=== PATIENT | male | born 1935 | race Caucasian/White ===

== ENCOUNTER 2017-06-05 17:09 | Inpatient (IN) | payer MEDICARE, OTHER ==
--- NOTE | 2017-06-05 17:30 | ED Physician Chart ---
ED Chief Complaint/HPI - Patient Information Date Seen:: 06/05/17 Time Seen:: 17:23 Chief Complaint:: Dementia History of Present Illness:: 82 yo male was brought by his to ER for clearance to [facility] admission. Per , the patient became increasingly obsessive and confusing. Patient would refuse to change clothes or take shower for days. He would occasionally refused to sleep and would take long time to bath or sit on the toilet. He at times became verbally aggressive. ED Review of Systems - Review of Systems General/Constitutional: No fever Skin: Skin lesions Head: No headache Eyes: No loss of vision ENT: No nasal drainage Neck: No neck pain Cardio Vascular: No chest pain Pulmonary: No SOB GI: No nausea, No vomiting Musculoskeletal: No bone or joint pain ED Past Medical History - Past Medical History Past Medical History: HTN Social History: Non Smoker, No Alcohol, No Drug Use Surgical History: other (testectomy) Family Medical History - Family Member Mother Living Status: ED Physical Exam - Physical Examination General/Constitutional: Awake Head: Atraumatic Eyes: PERRL Skin: No ecchymosis ENMT: Nasal exam nl Neck: No nuchal rigidity Respiratory: Clear to Auscultation Cardio Vascular: RRR, No murmur, gallop, rubs, NL S1 S2 GI: No tenderness/rebounding/guarding Extremities: normal strength in all extremities Neuro/Psych: No focal deficits ED Labs/Radiology/EKG Results - Radiology Results Results: CXR: scoliosis, no consolidation ED Assessment - Assessment General Assessment: Dementia with psychosis Assessment/Comments:: CBC, CMP, UA CXR, EKG Clear for [facility] admit ED Septic Shock - . Is Septic Shock (SBP<90, OR Lactate>4 mmol\L) present?: No ED Reassessment (Disposition) - Reassessment Reassessment Condition:: Unchanged - Patient Disposition Discharge/Transfer:: [facility] w/in this hosp
[2017-06-05 18:04] LABS: % BASOPHILS 0.9 % (0.0-2.0); % EOSINOPHILS 6.2 % (0.0-5.0); % LYMPHOCYTES 21.4 % (20.0-50.0); % MONOCYTES 8.2 % (2.0-10.0); % NEUTROPHILS 63.3 % (40.0-80.0); BASOPHILE ABSOLUTE 0.1 Th/cumm (0-0.2); EOSINOPHILE ABSOLUTE 0.5 Th/cmm (0.1-0.4); HEMATOCRIT 40.2 % (41.0-60); HEMOGLOBIN 13.4 gm/dL (12-16); LYMPHOCYTE ABSOLUTE 1.6 Th/cmm (1.5-3.0); MEAN CELL VOLUME 87.4 fl (80-99); MEAN CORPUSCULAR HEMOGLOBIN 29.2 pg (27.0-31.0); MEAN CORPUSCULAR HGB CONC 33.4 pg (28.0-36.0); MEAN PLATELET VOLUME 8.7 fl; MONOCYTE ABSOLUTE 0.6 Th/cmm (0.3-1.0); NEUTROPHILE ABSOLUTE 4.5 Th/cmm (1.8-8.0); PLATELET COUNT 215 Th/cmm (150-400); RED CELL DISTRIBUTION WIDTH 13.8 % (11.5-20.0); WHITE BLOOD COUNT 7.3 Th/cmm (4.8-10.8)
[2017-06-05 18:22] LABS: ALB/GLOB RATIO 1.7 (1.0-1.8); ALBUMIN 4.2 gm/dL (4.2-5.5); ALKALINE PHOSPHATASE 67 U/L (34-104); ANION GAP 9.8 (7.0-16.0); BILIRUBIN,TOTAL 0.3 mg/dL (0.3-1.0); BUN - UREA NITROGEN 11 mg/dL (7-25); CALCIUM SERUM 9.3 mg/dL (8.6-10.3); CARBON DIOXIDE 27.1 mEq/L (21.0-31.0); CHLORIDE 103 mEq/L (98-107); CREATININE - SERUM 0.8 mg/dL (0.7-1.3); GLUCOSE 101 mg/dL (70-105); POTASSIUM SERUM 3.9 mEq/L (3.5-5.1); SGOT 10 U/L (13-39); SGPT/ALT 7 U/L (7-52); SODIUM SERUM 136 mEq/L (136-145); TOTAL PROTEIN,SERUM 6.7 gm/dL (6.0-8.3)
[2017-06-05 22:11] VITALS: BP 138/74
--- NOTE | 2017-06-06 08:29 | Diagnostic Imaging Report ---
Exam: Portable chest x-ray HISTORY: Shortness of breath. Findings: Portable examination of the chest at 1817 hours reviewed, no prior studies available for comparison. The study demonstrates deformity right chest wall without multiple healed fractures. Mediastinal structures midline the heart is prominent. There is evidence of for elevation right left hemidiaphragm with most likely distended bowel or stomach. There is evidence of for air collection under right hemidiaphragm which might represent distended bowel loops. Clinical correlation recommended. CT examination of the abdomen might be helpful. Aortic arch calcified. There is evidence for left basilar atelectasis and pleural thickening. Small left pleural effusion cannot be excluded. COPD changes are noted. Bony thorax demonstrate no evidence for lytic or blastic lesions. IMPRESSION: Elevation left hemidiaphragm with distended stomach or bowel loops. Left basilar atelectasis pleural thickening. Lucency under right hemidiaphragm might represent collection of air throughout the bowel clinical correlation recommended.
--- NOTE | 2017-06-06 18:09 | History & Physical ---
ADMIT DATE: 06/06/2017 CHIEF COMPLAINT: Confusion. HISTORY OF PRESENT ILLNESS: An 82-year-old male with past medical history significant for dementia, brought in by for increased confusion and agitation. The patient has been admitted for further psychiatric evaluation at the [facility]. The patient is sitting in chair. He appears calm, but is a poor historian and does not contribute much for to his history. Denies any complaints. PAST MEDICAL HISTORY: The patient has history of dementia and hypertension. MEDICATIONS: The patient takes Namenda, metoprolol, Trileptal, Seroquel and vitamin B12. ALLERGIES: No known drug allergies. SOCIAL HISTORY: No known tobacco, alcohol or illicit drug use. FAMILY HISTORY: Noncontributory. REVIEW OF SYSTEMS: IMMUNOLOGIC: No recurrent infection. CARDIOVASCULAR: The patient has no known heart disease. He has hypertension. GASTROINTESTINAL: Denies nausea, vomiting or diarrhea. ENDOCRINE: No diabetes or thyroid disorder. NEUROLOGIC: No seizure or stroke. HEMATOLOGIC: No bleeding or clotting disorder. PHYSICAL EXAMINATION: GENERAL: The patient is awake and alert, in no acute distress. The patient appears cachectic and chronically malnourished. VITAL SIGNS: Temperature 98.4, pulse 74, respiration 18, blood pressure 137/72. SKIN: The patient has what appears to be abrasions on his nose and forehead, appears several days old with evidence of scabbing and healing. HEENT: Pupils are equal and round. Anicteric sclerae. NECK: Supple. No JVD, mass or bruit. LUNGS: Clear to auscultation. CARDIOVASCULAR: S1, S2 regular rate and rhythm. ABDOMEN: Soft, nontender, positive bowel sounds. EXTREMITIES: No clubbing, cyanosis or edema. BACK: No joint deformity. NEUROLOGIC: Moves all extremities equally. No lateralizing signs. LABORATORY DATA: CBC and chemistry are unremarkable. Albumin is 4.2. IMPRESSION: 1. Dementia. 2. Psychiatric disorder. 3. Hypertension. PLAN: Continue current medication. The patient is medically cleared to participate in activity. He is to follow up with primary care physician upon discharge. JOB# [id number]
--- NOTE | 2017-06-07 13:50 | General Progress Note ---
Subjective - Review of Systems Service Date: 06/07/17 Subjective: resting comfortably no distress Objective - Results Result Diagrams: 06/05/17 17:58 06/05/17 17:58 Recent Labs: Laboratory Last Values WBC 7.3 Th/cmm (4.8-10.8) 06/05/17 17:58 RBC 4.60 Mil/cmm (3.80-5.80) 06/05/17 17:58 Hgb 13.4 gm/dL (12-16) 06/05/17 17:58 Hct 40.2 % (41.0-60) L 06/05/17 17:58 MCV 87.4 fl (80-99) 06/05/17 17:58 MCH 29.2 pg (27.0-31.0) 06/05/17 17:58 MCHC Differential 33.4 pg (28.0-36.0) 06/05/17 17:58 RDW 13.8 % (11.5-20.0) 06/05/17 17:58 Plt Count 215 Th/cmm (150-400) 06/05/17 17:58 MPV 8.7 fl 06/05/17 17:58 Neutrophils % 63.3 % (40.0-80.0) 06/05/17 17:58 Lymphocytes % 21.4 % (20.0-50.0) 06/05/17 17:58 Monocytes % 8.2 % (2.0-10.0) 06/05/17 17:58 Eosinophils % 6.2 % (0.0-5.0) H 06/05/17 17:58 Basophils % 0.9 % (0.0-2.0) 06/05/17 17:58 Sodium 136 mEq/L (136-145) 06/05/17 17:58 Potassium 3.9 mEq/L (3.5-5.1) 06/05/17 17:58 Chloride 103 mEq/L (98-107) 06/05/17 17:58 Carbon Dioxide 27.1 mEq/L (21.0-31.0) 06/05/17 17:58 Anion Gap 9.8 (7.0-16.0) 06/05/17 17:58 BUN 11 mg/dL (7-25) 06/05/17 17:58 Creatinine 0.8 mg/dL (0.7-1.3) 06/05/17 17:58 Est GFR ( Amer) TNP 06/05/17 17:58 Est GFR (Non-Af Amer) TNP 06/05/17 17:58 BUN/Creatinine Ratio 13.8 06/05/17 17:58 Glucose 101 mg/dL (70-105) 06/05/17 17:58 Calcium 9.3 mg/dL (8.6-10.3) 06/05/17 17:58 Total Bilirubin 0.3 mg/dL (0.3-1.0) 06/05/17 17:58 AST 10 U/L (13-39) L 06/05/17 17:58 ALT 7 U/L (7-52) 06/05/17 17:58 Alkaline Phosphatase 67 U/L (34-104) 06/05/17 17:58 Total Protein 6.7 gm/dL (6.0-8.3) 06/05/17 17:58 Albumin 4.2 gm/dL (4.2-5.5) 06/05/17 17:58 Globulin 2.5 gm/dL 06/05/17 17:58 Albumin/Globulin Ratio 1.7 (1.0-1.8) 06/05/17 17:58 TSH 1.80 uIU/ml (0.34-5.60) 06/05/17 17:58 - Physical Exam Vitals and I&O: Vital Signs Temp 98.7 F 06/06/17 21:07 Pulse 69 06/07/17 08:58 Resp 18 06/06/17 21:07 BP 121/62 06/07/17 08:58 Pulse Ox 100 06/06/17 21:07 Intake & Output 06/06/17 06/07/17 06/07/17 18:59 06:59 18:59 Intake Total 900 120 Balance 900 120 Intake: Oral 900 120 Other: # Voids 4 1 # Bowel Movements 1 Active Medications: Current Medications Acetaminophen (Tylenol) 650 mg PO Q4HR PRN PRN Reason: Mild Pain / Temp above 100 Stop: 08/04/17 21:28 Cyanocobalamin (Vitamin B12) 1,000 mcg PO DAILY [facility] Stop: 08/05/17 08:59 Last Admin: 06/07/17 08:59 Dose: 1,000 mcg Lorazepam (Ativan) 0.5 mg PO Q4HR PRN; Protocol PRN Reason: Anxiety Stop: 07/05/17 21:28 Memantine (Namenda) 10 mg PO BID [facility] Stop: 08/05/17 08:59 Last Admin: 06/07/17 08:58 Dose: 10 mg Metoprolol Succinate (Toprol Xl) 50 mg PO DAILY [facility] Stop: 08/05/17 08:59 Last Admin: 06/07/17 08:58 Dose: 50 mg Oxcarbazepine (Trileptal) 300 mg PO QAM [facility] PRN Reason: Protocol Stop: 08/05/17 08:59 Last Admin: 06/07/17 08:57 Dose: 300 mg Quetiapine Fumarate (Seroquel) 100 mg PO HS [facility] PRN Reason: Protocol Stop: 08/05/17 20:59 Last Admin: 06/06/17 21:55 Dose: 100 mg Quetiapine Fumarate (Seroquel) 50 mg PO BID [facility] PRN Reason: Protocol Stop: 08/05/17 08:59 Last Admin: 06/07/17 08:57 Dose: 50 mg Zolpidem Tartrate (Ambien) 5 mg PO HS PRN PRN Reason: Insomnia Stop: 08/04/17 21:28 Last Admin: 06/06/17 21:55 Dose: 5 mg General: No acute distress HEENT: Atraumatic, PERRLA Neck: Supple, JVD Cardiovascular: Regular rate, Normal S1, Normal S2 Lungs: Clear to auscultation Abdomen: Bowel sounds, Soft Assessment/Plan - Assessment Assessment: dementia HTN - Plan Plan: cont current treatment
--- NOTE | 2017-06-07 17:22 | Psychosocial Evaluation ---
DATE OF SERVICE: 06/05/2017 PSYCHIATRIC INITIAL EVALUATION AND MENTAL STATUS EXAM AGE: 82. SEX: Male. PHYSICIAN: Dr. Dejesus. CHIEF COMPLAINT: Agitation and aggressive behavior. HISTORY OF PRESENT ILLNESS: The patient is admitted to the hospital from home after the patient has been increasingly agitated and has been actively hallucinating. The patient also has been refusing to take medications and his behavior has been out of control. According to the admission report, the patient has history of bipolar disorder and has been taking Seroquel 100 mg every day and also has been taking Trileptal. The patient has been easily agitated and has been in irritable moods. Also, has been restless. Also, the patient has been suspicious and paranoid with severe mood swings. He is also uncooperative with treatment and the patient has been at times refusing to sleep and also has been taking long time sitting in the shower and ____. The patient currently is agitated and refused to answer most of the questions. PAST PSYCHIATRIC HISTORY: The patient has history of bipolar disorder as well as history of dementia. PAST MEDICAL HISTORY: The patient has a history of hypertension. SOCIAL HISTORY: The patient lives at home. No known alcohol or drug use. ALLERGIES: No known allergies. MENTAL STATUS EXAMINATION: The patient appears his stated age. Anxious. Flat affect. In irritable mood. Thought processes are with poverty of speech. The patient did not answer questions about hallucinations or delusions and the patient seems to be preoccupied and paranoid. The patient did not answer questions in regards to suicide or homicide and he gets agitated and irritable with my questions. Poor insight and poor judgment. ASSESSMENT: PRIMARY DIAGNOSIS: Bipolar disorder, severe, with psychotic features. SECONDARY DIAGNOSIS: Dementia, severe, with psychotic features. TREATMENT PLAN: We will increase Seroquel to 50 mg twice a day and 100 mg at bedtime and we will continue Trileptal. Also, we will continue monitoring his behavior and his medications closely. ESTIMATED LENGTH OF STAY: 5-7 days. THE PATIENT'S STRENGTHS AND WEAKNESSES: The patient is cooperative with his treatment and taking his medications at this time. Weakness is his poor impulse control and his behavior. AFTER DISCHARGE PLAN: ____ and outpatient treatment and followup will continue as an outpatient. CRITERIA FOR DISCHARGE: Better impulse control and stabilizing psychotropic medications. [facility]# [id number]
--- NOTE | 2017-06-08 23:56 | Internal Medicine Prog Note ---
Internal Medicine Subjective - Subjective Service Date: 06/08/17 Patient seen and examined:: without staff Patient is:: awake, in bed, confused Per staff patient has:: no adverse event Internal Medicine Objective - Results Result Diagrams: 06/05/17 17:58 06/05/17 17:58 Recent Labs: Laboratory Last Values WBC 7.3 Th/cmm (4.8-10.8) 06/05/17 17:58 RBC 4.60 Mil/cmm (3.80-5.80) 06/05/17 17:58 Hgb 13.4 gm/dL (12-16) 06/05/17 17:58 Hct 40.2 % (41.0-60) L 06/05/17 17:58 MCV 87.4 fl (80-99) 06/05/17 17:58 MCH 29.2 pg (27.0-31.0) 06/05/17 17:58 MCHC Differential 33.4 pg (28.0-36.0) 06/05/17 17:58 RDW 13.8 % (11.5-20.0) 06/05/17 17:58 Plt Count 215 Th/cmm (150-400) 06/05/17 17:58 MPV 8.7 fl 06/05/17 17:58 Neutrophils % 63.3 % (40.0-80.0) 06/05/17 17:58 Lymphocytes % 21.4 % (20.0-50.0) 06/05/17 17:58 Monocytes % 8.2 % (2.0-10.0) 06/05/17 17:58 Eosinophils % 6.2 % (0.0-5.0) H 06/05/17 17:58 Basophils % 0.9 % (0.0-2.0) 06/05/17 17:58 Sodium 136 mEq/L (136-145) 06/05/17 17:58 Potassium 3.9 mEq/L (3.5-5.1) 06/05/17 17:58 Chloride 103 mEq/L (98-107) 06/05/17 17:58 Carbon Dioxide 27.1 mEq/L (21.0-31.0) 06/05/17 17:58 Anion Gap 9.8 (7.0-16.0) 06/05/17 17:58 BUN 11 mg/dL (7-25) 06/05/17 17:58 Creatinine 0.8 mg/dL (0.7-1.3) 06/05/17 17:58 Est GFR ( Amer) TNP 06/05/17 17:58 Est GFR (Non-Af Amer) TNP 06/05/17 17:58 BUN/Creatinine Ratio 13.8 06/05/17 17:58 Glucose 101 mg/dL (70-105) 06/05/17 17:58 Calcium 9.3 mg/dL (8.6-10.3) 06/05/17 17:58 Total Bilirubin 0.3 mg/dL (0.3-1.0) 06/05/17 17:58 AST 10 U/L (13-39) L 06/05/17 17:58 ALT 7 U/L (7-52) 06/05/17 17:58 Alkaline Phosphatase 67 U/L (34-104) 06/05/17 17:58 Total Protein 6.7 gm/dL (6.0-8.3) 06/05/17 17:58 Albumin 4.2 gm/dL (4.2-5.5) 06/05/17 17:58 Globulin 2.5 gm/dL 06/05/17 17:58 Albumin/Globulin Ratio 1.7 (1.0-1.8) 06/05/17 17:58 TSH 1.80 uIU/ml (0.34-5.60) 06/05/17 17:58 - Physical Exam Vitals and I&O: Vital Signs Temp 98 F 06/08/17 19:46 Pulse 90 06/08/17 19:46 Resp 20 06/08/17 20:00 BP 153/70 06/08/17 19:46 Pulse Ox 96 06/08/17 19:46 Intake & Output 06/08/17 06/08/17 06/09/17 06:59 18:59 06:59 Intake Total 240 900 240 Balance 240 900 240 Intake: Oral 240 900 240 Other: # Voids 1 3 1 Stool Characteristics Soft Soft Brown Brown Active Medications: Current Medications Acetaminophen (Tylenol) 650 mg PO Q4HR PRN PRN Reason: Mild Pain / Temp above 100 Stop: 08/04/17 21:28 Cyanocobalamin (Vitamin B12) 1,000 mcg PO DAILY [facility] Stop: 08/05/17 08:59 Last Admin: 06/08/17 09:58 Dose: Not Given Lorazepam (Ativan) 0.5 mg PO Q4HR PRN; Protocol PRN Reason: Anxiety Stop: 07/05/17 21:28 Memantine (Namenda) 10 mg PO BID [facility] Stop: 08/05/17 08:59 Last Admin: 06/08/17 17:44 Dose: 10 mg Metoprolol Succinate (Toprol Xl) 50 mg PO DAILY [facility] Stop: 08/05/17 08:59 Last Admin: 06/08/17 09:58 Dose: Not Given Oxcarbazepine (Trileptal) 300 mg PO QAM [facility] PRN Reason: Protocol Stop: 08/05/17 08:59 Last Admin: 06/08/17 09:58 Dose: Not Given Quetiapine Fumarate (Seroquel) 100 mg PO HS [facility] PRN Reason: Protocol Stop: 08/05/17 20:59 Last Admin: 06/08/17 20:33 Dose: 100 mg Quetiapine Fumarate (Seroquel) 50 mg PO BID [facility] PRN Reason: Protocol Stop: 08/05/17 08:59 Last Admin: 06/08/17 17:44 Dose: 50 mg Zolpidem Tartrate (Ambien) 5 mg PO HS PRN PRN Reason: Insomnia Stop: 08/04/17 21:28 Last Admin: 06/07/17 21:02 Dose: 5 mg General: demented HEENT: NC/AT, PERRLA, EOMI, anicteric sclerae, throat clear Lungs: CTAB Cardiovascular: RRR, Normal S1, Normal S2, without murmur Abdomen: soft, non-tender, non-distended Extremities: clear Neurological: no change Internal Medicine Assmt/Plan - Assessment Assessment: 1.HTN. 2.DJD. 3.DEMENTIA. 4.PSYCHOSIS. - Plan Plan: CONTINUE ON CURRENT MEDICATION NAD DIET.
--- NOTE | 2017-06-09 20:03 | Internal Medicine Prog Note ---
Internal Medicine Subjective - Subjective Service Date: 06/09/17 Patient seen and examined:: without staff (HE FEELS BETTER) Patient is:: awake, in bed, confused Per staff patient has:: no adverse event Internal Medicine Objective - Results Result Diagrams: 06/05/17 17:58 06/05/17 17:58 Recent Labs: Laboratory Last Values WBC 7.3 Th/cmm (4.8-10.8) 06/05/17 17:58 RBC 4.60 Mil/cmm (3.80-5.80) 06/05/17 17:58 Hgb 13.4 gm/dL (12-16) 06/05/17 17:58 Hct 40.2 % (41.0-60) L 06/05/17 17:58 MCV 87.4 fl (80-99) 06/05/17 17:58 MCH 29.2 pg (27.0-31.0) 06/05/17 17:58 MCHC Differential 33.4 pg (28.0-36.0) 06/05/17 17:58 RDW 13.8 % (11.5-20.0) 06/05/17 17:58 Plt Count 215 Th/cmm (150-400) 06/05/17 17:58 MPV 8.7 fl 06/05/17 17:58 Neutrophils % 63.3 % (40.0-80.0) 06/05/17 17:58 Lymphocytes % 21.4 % (20.0-50.0) 06/05/17 17:58 Monocytes % 8.2 % (2.0-10.0) 06/05/17 17:58 Eosinophils % 6.2 % (0.0-5.0) H 06/05/17 17:58 Basophils % 0.9 % (0.0-2.0) 06/05/17 17:58 Sodium 136 mEq/L (136-145) 06/05/17 17:58 Potassium 3.9 mEq/L (3.5-5.1) 06/05/17 17:58 Chloride 103 mEq/L (98-107) 06/05/17 17:58 Carbon Dioxide 27.1 mEq/L (21.0-31.0) 06/05/17 17:58 Anion Gap 9.8 (7.0-16.0) 06/05/17 17:58 BUN 11 mg/dL (7-25) 06/05/17 17:58 Creatinine 0.8 mg/dL (0.7-1.3) 06/05/17 17:58 Est GFR ( Amer) TNP 06/05/17 17:58 Est GFR (Non-Af Amer) TNP 06/05/17 17:58 BUN/Creatinine Ratio 13.8 06/05/17 17:58 Glucose 101 mg/dL (70-105) 06/05/17 17:58 Calcium 9.3 mg/dL (8.6-10.3) 06/05/17 17:58 Total Bilirubin 0.3 mg/dL (0.3-1.0) 06/05/17 17:58 AST 10 U/L (13-39) L 06/05/17 17:58 ALT 7 U/L (7-52) 06/05/17 17:58 Alkaline Phosphatase 67 U/L (34-104) 06/05/17 17:58 Total Protein 6.7 gm/dL (6.0-8.3) 06/05/17 17:58 Albumin 4.2 gm/dL (4.2-5.5) 06/05/17 17:58 Globulin 2.5 gm/dL 06/05/17 17:58 Albumin/Globulin Ratio 1.7 (1.0-1.8) 06/05/17 17:58 TSH 1.80 uIU/ml (0.34-5.60) 06/05/17 17:58 - Physical Exam Vitals and I&O: Vital Signs Temp 98.2 F 06/09/17 15:52 Pulse 101 06/09/17 15:52 Resp 18 06/09/17 15:52 BP 120/64 06/09/17 15:52 Pulse Ox 95 06/09/17 15:52 Intake & Output 06/09/17 06/09/17 06/10/17 06:59 18:59 06:59 Intake Total 240 Balance 240 Intake: Oral 240 Other: # Voids 3 # Bowel Movements 1 Stool Characteristics Soft Soft Soft Brown Brown Brown Active Medications: Current Medications Acetaminophen (Tylenol) 650 mg PO Q4HR PRN PRN Reason: Mild Pain / Temp above 100 Stop: 08/04/17 21:28 Cyanocobalamin (Vitamin B12) 1,000 mcg PO DAILY [facility] Stop: 08/05/17 08:59 Last Admin: 06/09/17 09:38 Dose: 1,000 mcg Lorazepam (Ativan) 0.5 mg PO Q4HR PRN; Protocol PRN Reason: Anxiety Stop: 07/05/17 21:28 Memantine (Namenda) 10 mg PO BID [facility] Stop: 08/05/17 08:59 Last Admin: 06/09/17 16:42 Dose: 10 mg Metoprolol Succinate (Toprol Xl) 50 mg PO DAILY [facility] Stop: 08/05/17 08:59 Last Admin: 06/09/17 09:38 Dose: Not Given Oxcarbazepine (Trileptal) 300 mg PO QAM [facility] PRN Reason: Protocol Stop: 08/05/17 08:59 Last Admin: 06/09/17 09:39 Dose: 300 mg Quetiapine Fumarate (Seroquel) 100 mg PO HS [facility] PRN Reason: Protocol Stop: 08/05/17 20:59 Last Admin: 06/08/17 20:33 Dose: 100 mg Quetiapine Fumarate (Seroquel) 50 mg PO BID [facility] PRN Reason: Protocol Stop: 08/05/17 08:59 Last Admin: 06/09/17 16:42 Dose: 50 mg Zolpidem Tartrate (Ambien) 5 mg PO HS PRN PRN Reason: Insomnia Stop: 08/04/17 21:28 Last Admin: 06/07/17 21:02 Dose: 5 mg General: demented HEENT: NC/AT, PERRLA, EOMI, anicteric sclerae, throat clear Lungs: CTAB Cardiovascular: RRR, Normal S1, Normal S2, without murmur Abdomen: soft, non-tender, non-distended Extremities: clear Neurological: no change Internal Medicine Assmt/Plan - Assessment Assessment: 1.HTN. 2.DJD. 3.DEMENTIA. 4.PSYCHOSIS. - Plan Plan: CONTINUE ON CURRENT MEDICATION NAD DIET.
--- NOTE | 2017-06-10 06:59 | Progress Notes ---
DATE: 06/07/2017 SUBJECTIVE: Chart reviewed and the patient interviewed. Also discussed the patient's condition with the staff and reviewed records and labs. The patient is calm and he seems to be quite today. Also, has been more cooperative with his care. He still seems to be depressed and is withdrawn. He is also easier to the direct him. He is compliant with taking his medications and no side effect of medications. ASSESSMENT: The patient is showing some improvement. TREATMENT PLAN: We will continue monitoring his behavior and continue adjusting psychotropic medications. Also, continue to work on behavior modification and follow up closely. JOB# [id number]
--- NOTE | 2017-06-10 20:53 | Internal Medicine Prog Note ---
Internal Medicine Subjective - Subjective Patient is:: awake, in bed, confused Per staff patient has:: no adverse event Internal Medicine Objective - Results Result Diagrams: 06/05/17 17:58 06/05/17 17:58 Recent Labs: Laboratory Last Values WBC 7.3 Th/cmm (4.8-10.8) 06/05/17 17:58 RBC 4.60 Mil/cmm (3.80-5.80) 06/05/17 17:58 Hgb 13.4 gm/dL (12-16) 06/05/17 17:58 Hct 40.2 % (41.0-60) L 06/05/17 17:58 MCV 87.4 fl (80-99) 06/05/17 17:58 MCH 29.2 pg (27.0-31.0) 06/05/17 17:58 MCHC Differential 33.4 pg (28.0-36.0) 06/05/17 17:58 RDW 13.8 % (11.5-20.0) 06/05/17 17:58 Plt Count 215 Th/cmm (150-400) 06/05/17 17:58 MPV 8.7 fl 06/05/17 17:58 Neutrophils % 63.3 % (40.0-80.0) 06/05/17 17:58 Lymphocytes % 21.4 % (20.0-50.0) 06/05/17 17:58 Monocytes % 8.2 % (2.0-10.0) 06/05/17 17:58 Eosinophils % 6.2 % (0.0-5.0) H 06/05/17 17:58 Basophils % 0.9 % (0.0-2.0) 06/05/17 17:58 Sodium 136 mEq/L (136-145) 06/05/17 17:58 Potassium 3.9 mEq/L (3.5-5.1) 06/05/17 17:58 Chloride 103 mEq/L (98-107) 06/05/17 17:58 Carbon Dioxide 27.1 mEq/L (21.0-31.0) 06/05/17 17:58 Anion Gap 9.8 (7.0-16.0) 06/05/17 17:58 BUN 11 mg/dL (7-25) 06/05/17 17:58 Creatinine 0.8 mg/dL (0.7-1.3) 06/05/17 17:58 Est GFR ( Amer) TNP 06/05/17 17:58 Est GFR (Non-Af Amer) TNP 06/05/17 17:58 BUN/Creatinine Ratio 13.8 06/05/17 17:58 Glucose 101 mg/dL (70-105) 06/05/17 17:58 Calcium 9.3 mg/dL (8.6-10.3) 06/05/17 17:58 Total Bilirubin 0.3 mg/dL (0.3-1.0) 06/05/17 17:58 AST 10 U/L (13-39) L 06/05/17 17:58 ALT 7 U/L (7-52) 06/05/17 17:58 Alkaline Phosphatase 67 U/L (34-104) 06/05/17 17:58 Total Protein 6.7 gm/dL (6.0-8.3) 06/05/17 17:58 Albumin 4.2 gm/dL (4.2-5.5) 06/05/17 17:58 Globulin 2.5 gm/dL 06/05/17 17:58 Albumin/Globulin Ratio 1.7 (1.0-1.8) 06/05/17 17:58 TSH 1.80 uIU/ml (0.34-5.60) 06/05/17 17:58 - Physical Exam Vitals and I&O: Vital Signs Temp 97.0 F 06/10/17 14:43 Pulse 87 06/10/17 14:43 Resp 20 06/10/17 19:56 BP 124/72 06/10/17 14:43 Pulse Ox 95 06/10/17 14:43 Intake & Output 06/10/17 06/10/17 06/11/17 06:59 18:59 06:59 Intake Total 900 Balance 900 Intake: Oral 900 Other: # Voids 3 # Bowel Movements 1 Stool Characteristics Soft Brown Active Medications: Current Medications Acetaminophen (Tylenol) 650 mg PO Q4HR PRN PRN Reason: Mild Pain / Temp above 100 Stop: 08/04/17 21:28 Cyanocobalamin (Vitamin B12) 1,000 mcg PO DAILY LLUVIA Stop: 08/05/17 08:59 Last Admin: 06/10/17 08:36 Dose: 1,000 mcg Lorazepam (Ativan) 0.5 mg PO Q4HR PRN; Protocol PRN Reason: Anxiety Stop: 07/05/17 21:28 Memantine (Namenda) 10 mg PO BID [facility] Stop: 08/05/17 08:59 Last Admin: 06/10/17 16:05 Dose: 10 mg Metoprolol Succinate (Toprol Xl) 50 mg PO DAILY LLUVIA Stop: 08/05/17 08:59 Last Admin: 06/10/17 08:36 Dose: 50 mg Oxcarbazepine (Trileptal) 300 mg PO QAM LLUVIA PRN Reason: Protocol Stop: 08/05/17 08:59 Last Admin: 06/10/17 08:37 Dose: 300 mg Quetiapine Fumarate (Seroquel) 100 mg PO HS LLUVIA PRN Reason: Protocol Stop: 08/05/17 20:59 Last Admin: 06/09/17 20:49 Dose: 100 mg Quetiapine Fumarate (Seroquel) 50 mg PO BID LLUVIA PRN Reason: Protocol Stop: 08/05/17 08:59 Last Admin: 06/10/17 16:06 Dose: 50 mg Zolpidem Tartrate (Ambien) 5 mg PO HS PRN PRN Reason: Insomnia Stop: 08/04/17 21:28 Last Admin: 06/07/17 21:02 Dose: 5 mg General: demented HEENT: NC/AT, PERRLA, EOMI, anicteric sclerae, throat clear Lungs: CTAB Cardiovascular: RRR, Normal S1, Normal S2, without murmur Abdomen: soft, non-tender, non-distended Extremities: clear Neurological: no change Internal Medicine Assmt/Plan - Assessment Assessment: 1.HTN. 2.DJD. 3.DEMENTIA. 4.PSYCHOSIS. - Plan Plan: CONTINUE ON CURRENT MEDICATION NAD DIET. Nutritional Asmnt/Malnutr-PDOC - Dietary Evaluation Malnutrition Findings (Please click <Entered> for more info): Nutritional Asmnt/Malnutrition Start: 06/10/17 17: 20 Text: Status: Complete Freq: Document 06/10/17 17:20 KASEY (Rec: 06/10/17 17:36 KASEY [email or web address]) Nutritional Asmnt/Malnutrition Patient General Information Nutritional Screening Moderate Risk Diagnosis bipolar Pertinent Medical Hx/Surgical Hx dementia, HTN Subjective Information pt seen sitting in jasen-chair in dining room. Per nurse, pt consumed 95% of lunch today, needs assistance with feeding but eats well. Per records, PO intake 50-100%. Current Diet Order/ Nutrition Support pureed Pertinent Medications vit B12, seroquel Pertinent Labs 2/2 nutrition related labs WNL Nutritional Hx/Data Height 1.75 m Height (Calculated Centimeters) 175.3 Current Weight (lbs) 74.843 kg Weight (Calculated Kilograms) 74.8 Weight (Calculated Grams) 96477.7 [place] Body Weight 160 % [place] Body Weight 103 Body Mass Index (BMI) 24.3 Weight Status Approriate GI Symptoms GI Symptoms None Last BM 2/6 Difficult in: None Skin Integrity/Comment: lyn velez 18 Estimated Nutritional Goals BEE in Kcals: Using Current wt Calories/Kcals/Kg 25-30 Kcals Calculated 1956-0989 Protein: Using Current wt Protein g/k Protein Calculated 75 Fluid: ml 1875-2250ml (1ml/kcal) Nutritional Problem No current Nutrition Prob Problem N/A Malnutrition Alert Protein-Calorie Malnutrition N/A Is there a minimum of two criteria No selected? Query Text:Check all the applicable criteria. A minimum of two criteria are recommended for diagnosis of either severe or non-severe malnutrition. Intervention/Recommendation Comments 1. Continue with current diet as ordered. 2. Monitor PO intake, wt, labs and skin integrity 3. F/U as low risk in 7 days, 06/17 Expected Outcomes/Goals Expected Outcomes/Goals 1. PO intake to meet at least 75% of nutritional needs. 2. Wt stability, skin to remain intact, labs to approach WNL.
--- NOTE | 2017-06-10 23:42 | Progress Notes ---
DATE: 06/08/2017 SUBJECTIVE: Chart reviewed and the patient interviewed. Also discussed the patient's condition with the staff and reviewed records and labs. The patient is still confused. The patient also is very forgetful and he is unable to remember except he is oriented to his name. The patient also is still anxious and withdrawn and wants to be left alone. Otherwise, the patient is compliant with taking his medications. The patient denies any side effects of medications. ASSESSMENT: The patient is still psychotic and needs close monitoring. TREATMENT PLAN: We will continue to monitor his behavior and his condition closely. Also, continue to work on adjusting psychotropic medications and followup. JOB# [id number]
--- NOTE | 2017-06-11 18:01 | Internal Medicine Prog Note ---
Internal Medicine Subjective - Subjective Service Date: 06/11/17 Patient seen and examined:: with staff Patient is:: awake, in bed, confused Per staff patient has:: no adverse event Internal Medicine Objective - Results Result Diagrams: 06/05/17 17:58 06/05/17 17:58 Recent Labs: Laboratory Last Values WBC 7.3 Th/cmm (4.8-10.8) 06/05/17 17:58 RBC 4.60 Mil/cmm (3.80-5.80) 06/05/17 17:58 Hgb 13.4 gm/dL (12-16) 06/05/17 17:58 Hct 40.2 % (41.0-60) L 06/05/17 17:58 MCV 87.4 fl (80-99) 06/05/17 17:58 MCH 29.2 pg (27.0-31.0) 06/05/17 17:58 MCHC Differential 33.4 pg (28.0-36.0) 06/05/17 17:58 RDW 13.8 % (11.5-20.0) 06/05/17 17:58 Plt Count 215 Th/cmm (150-400) 06/05/17 17:58 MPV 8.7 fl 06/05/17 17:58 Neutrophils % 63.3 % (40.0-80.0) 06/05/17 17:58 Lymphocytes % 21.4 % (20.0-50.0) 06/05/17 17:58 Monocytes % 8.2 % (2.0-10.0) 06/05/17 17:58 Eosinophils % 6.2 % (0.0-5.0) H 06/05/17 17:58 Basophils % 0.9 % (0.0-2.0) 06/05/17 17:58 Sodium 136 mEq/L (136-145) 06/05/17 17:58 Potassium 3.9 mEq/L (3.5-5.1) 06/05/17 17:58 Chloride 103 mEq/L (98-107) 06/05/17 17:58 Carbon Dioxide 27.1 mEq/L (21.0-31.0) 06/05/17 17:58 Anion Gap 9.8 (7.0-16.0) 06/05/17 17:58 BUN 11 mg/dL (7-25) 06/05/17 17:58 Creatinine 0.8 mg/dL (0.7-1.3) 06/05/17 17:58 Est GFR ( Amer) TNP 06/05/17 17:58 Est GFR (Non-Af Amer) TNP 06/05/17 17:58 BUN/Creatinine Ratio 13.8 06/05/17 17:58 Glucose 101 mg/dL (70-105) 06/05/17 17:58 Calcium 9.3 mg/dL (8.6-10.3) 06/05/17 17:58 Total Bilirubin 0.3 mg/dL (0.3-1.0) 06/05/17 17:58 AST 10 U/L (13-39) L 06/05/17 17:58 ALT 7 U/L (7-52) 06/05/17 17:58 Alkaline Phosphatase 67 U/L (34-104) 06/05/17 17:58 Total Protein 6.7 gm/dL (6.0-8.3) 06/05/17 17:58 Albumin 4.2 gm/dL (4.2-5.5) 06/05/17 17:58 Globulin 2.5 gm/dL 06/05/17 17:58 Albumin/Globulin Ratio 1.7 (1.0-1.8) 06/05/17 17:58 TSH 1.80 uIU/ml (0.34-5.60) 06/05/17 17:58 - Physical Exam Vitals and I&O: Vital Signs Temp 97.9 F 06/11/17 14:00 Pulse 90 06/11/17 14:00 Resp 20 06/11/17 14:00 BP 98/66 06/11/17 14:00 Pulse Ox 95 06/11/17 14:00 Intake & Output 06/10/17 06/11/17 06/11/17 18:59 06:59 18:59 Intake Total 900 120 Balance 900 120 Intake: Oral 900 120 Other: # Voids 3 3 # Bowel Movements 1 Active Medications: Current Medications Acetaminophen (Tylenol) 650 mg PO Q4HR PRN PRN Reason: Mild Pain / Temp above 100 Stop: 08/04/17 21:28 Cyanocobalamin (Vitamin B12) 1,000 mcg PO DAILY LLUVIA Stop: 08/05/17 08:59 Last Admin: 06/11/17 09:39 Dose: 1,000 mcg Lorazepam (Ativan) 0.5 mg PO Q4HR PRN; Protocol PRN Reason: Anxiety Stop: 07/05/17 21:28 Memantine (Namenda) 10 mg PO BID [facility] Stop: 08/05/17 08:59 Last Admin: 06/11/17 16:28 Dose: 10 mg Metoprolol Succinate (Toprol Xl) 50 mg PO DAILY [facility] Stop: 08/05/17 08:59 Last Admin: 06/11/17 09:39 Dose: 50 mg Oxcarbazepine (Trileptal) 300 mg PO QAM LLUVIA PRN Reason: Protocol Stop: 08/05/17 08:59 Last Admin: 06/11/17 09:39 Dose: 300 mg Quetiapine Fumarate (Seroquel) 100 mg PO HS LLUVIA PRN Reason: Protocol Stop: 08/05/17 20:59 Last Admin: 06/10/17 21:50 Dose: 100 mg Quetiapine Fumarate (Seroquel) 50 mg PO BID LLUVIA PRN Reason: Protocol Stop: 08/05/17 08:59 Last Admin: 06/11/17 16:28 Dose: 50 mg Zolpidem Tartrate (Ambien) 5 mg PO HS PRN PRN Reason: Insomnia Stop: 08/04/17 21:28 Last Admin: 06/07/17 21:02 Dose: 5 mg General: demented HEENT: NC/AT, PERRLA, EOMI, anicteric sclerae, throat clear Lungs: CTAB Cardiovascular: RRR, Normal S1, Normal S2, without murmur Abdomen: soft, non-tender, non-distended Extremities: clear Neurological: no change Internal Medicine Assmt/Plan - Assessment Assessment: 1.HTN. 2.DJD. 3.DEMENTIA. 4.PSYCHOSIS. - Plan Plan: CONTINUE ON CURRENT MEDICATION NAD DIET. Nutritional Asmnt/Malnutr-PDOC - Dietary Evaluation Malnutrition Findings (Please click <Entered> for more info): Nutritional Asmnt/Malnutrition Start: 06/10/17 17: 20 Text: Status: Complete Freq: Document 06/10/17 17:20 KASEY (Rec: 06/10/17 17:36 [email or web address] [email or web address]) Nutritional Asmnt/Malnutrition Patient General Information Nutritional Screening Moderate Risk Diagnosis bipolar Pertinent Medical Hx/Surgical Hx dementia, HTN Subjective Information pt seen sitting in jasen-chair in dining room. Per nurse, pt consumed 95% of lunch today, needs assistance with feeding but eats well. Per records, PO intake 50-100%. Current Diet Order/ Nutrition Support pureed Pertinent Medications vit B12, seroquel Pertinent Labs 2/2 nutrition related labs WNL Nutritional Hx/Data Height 1.75 m Height (Calculated Centimeters) 175.3 Current Weight (lbs) 74.843 kg Weight (Calculated Kilograms) 74.8 Weight (Calculated Grams) 96078.7 [place] Body Weight 160 % [place] Body Weight 103 Body Mass Index (BMI) 24.3 Weight Status Approriate GI Symptoms GI Symptoms None Last BM 2/6 Difficult in: None Skin Integrity/Comment: lyn velez 18 Estimated Nutritional Goals BEE in Kcals: Using Current wt Calories/Kcals/Kg 25-30 Kcals Calculated 2313-7774 Protein: Using Current wt Protein g/k Protein Calculated 75 Fluid: ml 1875-2250ml (1ml/kcal) Nutritional Problem No current Nutrition Prob Problem N/A Malnutrition Alert Protein-Calorie Malnutrition N/A Is there a minimum of two criteria No selected? Query Text:Check all the applicable criteria. A minimum of two criteria are recommended for diagnosis of either severe or non-severe malnutrition. Intervention/Recommendation Comments 1. Continue with current diet as ordered. 2. Monitor PO intake, wt, labs and skin integrity 3. F/U as low risk in 7 days, 06/17 Expected Outcomes/Goals Expected Outcomes/Goals 1. PO intake to meet at least 75% of nutritional needs. 2. Wt stability, skin to remain intact, labs to approach WNL.
--- NOTE | 2017-06-12 08:27 | Discharge Summary ---
DATE OF DISCHARGE: 06/12/2017 DATE OF DISCHARGE: 06/12/2017. AGE: 82. SEX: Male. PHYSICIAN: Dr. Dejesus. FINAL DIAGNOSIS: PRIMARY DIAGNOSIS: Bipolar disorder, severe, with psychotic features. SECONDARY DIAGNOSIS: Dementia, severe, with psychotic features. REASON FOR HOSPITALIZATION: The patient was admitted to the hospital because of agitation and aggressive behavior. HOSPITAL COURSE: The patient continued to be irritable mood and agitated. The patient also was tense and had difficulty following the directions. The patient was started on Seroquel and the dose adjusted to 50 mg twice a day and 100 mg at bedtime. Also, continue to take Trileptal in a dose of 300 mg every morning. Gradually, the patient's affect was brighter. The patient was less agitated and less irritable. The patient also was calm. [facility] accepted the patient and the patient was discharged there. Physical examination of the patient showed no major medical problems while in the hospital and also no major abnormal labs. AFTER DISCHARGE PLANS: The patient discharged from the hospital to [facility] with plan to follow him there. EXPECTED OUTCOME AFTER DISCHARGE: Fair if the patient continues with his outpatient treatment and continued to take his psychotropic medications. JOB# [id number]
--- NOTE | 2017-06-12 09:41 | Progress Notes ---
DATE: 06/09/2017 SUBJECTIVE: Chart reviewed and the patient interviewed. Also, discussed the patient's condition with the staff and reviewed records and labs. The patient is still confused. The patient also is still forgetful and need lots of redirections. The patient still has episodes of yelling and screaming. He also oriented only to himself. Also, guarded and uncooperative with the staff. Otherwise, the patient denies any side effects of medications. ASSESSMENT: The patient is still confused and psychotic. TREATMENT PLAN: Continue to monitor his behavior and his condition closely. Also, continue working on behavior modification and adjusting psychotropic medications. JOB# [id number]
--- NOTE | 2017-06-12 10:27 | Progress Notes ---
DATE: 06/10/2017 SUBJECTIVE: Chart reviewed and the patient interviewed. Also discussed the patient's condition with the staff and reviewed records and labs. The patient continue to be confused. The patient also is trying to get off bed. Also, took his medications. The patient is screaming and yelling, but seems to be less than before. He also is cooperative and interacting more with others. ASSESSMENT: The patient is still psychotic. TREATMENT PLAN: Continue to monitor his behavior and his medications closely. Also, working on adjusting psychotropic medications and followup. JOB# [id number]
--- NOTE | 2017-06-12 11:32 | Progress Notes ---
DATE: 06/11/2017 SUBJECTIVE: Chart reviewed and the patient interviewed. Also, discussed the patient's condition with the staff and reviewed records and labs. The patient is still extremely irritable and he is still in angry mood. The patient also slept better last night. Also, has been compliant with taking his medications. In general, the patient seems to be slightly calmer today than yesterday. He also is denying any side effects of medications. The patient is still depressed and withdrawn, but he is cooperative with treatment. TREATMENT PLAN: Continue monitoring his behavior and his condition closely. Also, continue adjusting psychotropic medications and working on behavioral modification. JOB# [id number]
== END 2017-06-12 11:30 | DRG 885 ==
LOC: ER 17:09 → GERO 19:45
PROVIDERS: ADMIT Psychiatry & Neurology Psychiatry; ATTEND Psychiatry & Neurology Psychiatry
DX: F31.5 Bipolar disorder, current episode depressed, severe, with psychotic features (principal); R64 Cachexia; F03.91 Unspecified dementia, unspecified severity, with behavioral disturbance; I10 Essential (primary) hypertension; M19.90 Unspecified osteoarthritis, unspecified site; F29 Unspecified psychosis not due to a substance or known physiological condition
CPT/HCPCS: 36415-UA; 71045-TC; 80053-TC; 84443-TC; 85025-TC; 93005; G0410; Z7610